=== PATIENT | male | born 1990 | race Caucasian/White ===

== ENCOUNTER 2018-03-21 19:45 | Observation (INO) | payer BC ==
[2018-03-21] MEDS ORDERED: SODIUM CHLORIDE 0.9% 1000ML 1,000 ML IV SCH (20:15)
[2018-03-21] MEDS ORDERED: PANTOPRAZOLE SODIUM 40 MG/10 ML PDS IV ONE (20:16)
[2018-03-21] MEDS ORDERED: PANTOPRAZOLE SODIUM 40 MG/10 ML PDS ONE (20:22)
[2018-03-21 20:37] LABS: BASOPHILS % (AUTO) 1 % (0-3); EOSINOPHILS % (AUTO) 2 % (0-9); HEMATOCRIT 44 % (39-53); HEMOGLOBIN 14.4 gm/dl (13.5-17.7); LYMPHOCYTES % (AUTO) 14.3 % (10-50); MEAN CORPUSCULAR HEMOGLOBIN 28.4 pg (27.0-32.0); MEAN CORPUSCULAR HGB CONC 32.8 gm/dl (32.0-36.0); MEAN CORPUSCULAR VOLUME 87 fL (80-100); MONOCYTES % (AUTO) 15.4 % (0-12); NEUTROPHILS % (AUTO) 67.3 % (37-80)
[2018-03-21 20:51] LABS: ALBUMIN 2.9 gm/dl (3.4-5.0); BILIRUBIN,TOTAL 0.4 mg/dl (0.2-1.0); CALCIUM 8.2 mg/dl (8.5-10.1); CARBON DIOXIDE 28.1 mEq/L (21-32); CREATININE 0.91 mg/dl (0.80-1.30); POTASSIUM 3.8 mMol/L (3.5-5.1); TOTAL PROTEIN 7.2 gm/dl (6.4-8.2)
[2018-03-21] MEDS ORDERED: CIPROFLOXACIN HCL 500 MG TAB PO SCH (22:15)
[2018-03-21] MEDS ORDERED: CIPROFLOXACIN HCL 500 MG TAB PO ONE (22:22)
[2018-03-21] MEDS ORDERED: LOPERAMIDE HYDROCHLORIDE 2 MG CAP PO PRN (22:44)
[2018-03-21] MEDS ORDERED: MORPHINE SULFATE 10 MG/ML SOL IV PRN (22:45)
[2018-03-21] MEDS: SODIUM CHLORIDE 0.9% 1000ML 1,000 ML IV SCH (23:30)
[2018-03-22 04:25] VITALS: O2SAT 98
[2018-03-22] MEDS: SODIUM CHLORIDE 0.9% 1000ML 1,000 ML IV SCH (06:49)
[2018-03-22 08:25] VITALS: BP 119/76; PULSE 89; RESP 16; TEMP 98.5
[2018-03-22] MEDS ORDERED: PANTOPRAZOLE SODIUM 40 MG/10 ML PDS IV SCH (09:00)
[2018-03-23] MEDS ORDERED: AZITHROMYCIN 250 MG TAB PO SCH (09:00)
== END 2018-03-22 13:20 | disposition home or self-care (01) ==
LOC: ED 19:45 → ACUTE CARE 22:30
PROVIDERS: ADMIT Family Medicine; ATTEND Family Medicine
DX: K92.2 Gastrointestinal hemorrhage, unspecified (principal); R19.7 Diarrhea, unspecified; R10.9 Unspecified abdominal pain
CPT/HCPCS: 74177; 80053; 85025; 96365; 96366; 96374; 99219; 99284; Q9967; A9270-GY